=== PATIENT | male | born 1970 | race African-American/Black ===

== ENCOUNTER 2024-03-10 10:51 | Emergency (ER) | payer BC, OTHER ==
[~2024-03-10] VITALS: Ht 167.6 cm; Wt 63.5 kg
[2024-03-10 11:38] LABS: Urine Bacteria None Seen /hpf (None Seen)
[2024-03-10 11:48] LABS: Urine Blood Negative /uL (Negative); Urine Clarity Clear (Clear); Urine Color Light-Yellow (Yellow); Urine Protein, UAD 1+ (Negative); Urine Specific Gravity 1.025 (1.001-1.035); Urine Urobilinogen Normal (Negative); Urine WBC <1 /hpf (0 - 3); Urine pH 5.5 (5.0-9.0)
[2024-03-10 13:37] LABS: Basophils # (auto) 0 10 ^3/uL (0-0.2); Basophils % (auto) 1.2 % (0.0-2.0); Eosinophils # (auto) 0 10 ^3/uL (0-0.8); Eosinophils % (auto) 1.2 % (0.0-7.0); Hematocrit 41.9 % (41.0-53.0); Hemoglobin 14.3 g/dL (13.5-17.5); Lymphocytes # (auto) 1.4 10 ^3/uL (0.4-5.4); Lymphocytes % (auto) 50.7 % (10.0-50.0); Mean Corpuscular Hemoglobin 33.5 pg (28.0-32.0); Mean Corpuscular Hgb Conc. 34.2 g/dL (32.0-36.0); Mean Corpuscular Volume 98.2 fL (80.0-100.0); Monocytes # (auto) 0.4 10 ^3/uL (0-1.3); Monocytes % (auto) 14.5 % (0.0-12.0); Neutrophils # (auto) 0.9 10 ^3/uL (1.6-8.6); Neutrophils % (auto) 32.4 % (37.0-80.0); Red Blood Cells 4.27 10^6/uL (4.5-5.90); Red Cell Distribution Width 14.2 % (11.8-14.3); White Blood Cell 2.7 10^3/uL (4.4-10.8)
[2024-03-10 13:52] LABS: Alanine Aminotransferase 134 U/L (7-40); Albumin 4.2 g/dL (3.2-4.8); Alkaline Phosphatase 145 U/L (46-116); Anion Gap 6 (5-15); Aspartate Aminotransferase 69 U/L (13-40); BUN/Creatinine Ratio 21.8 (10.0-20.0); Blood Urea Nitrogen 17 mg/dL (9-23); Calcium 9.2 mg/dL (8.5-10.1); Carbon Dioxide 23 mmol/L (20-30); Chloride 110 mmol/L (98-107); Glucose 67 mg/dL (74-106); Potassium 4.1 mmol/L (3.5-5.1); Sodium 139 mmol/L (136-145)
[2024-03-10 13:53] LABS: Bilirubin, Total 0.4 mg/dL (0.2-1.0); Total Protein 6.6 g/dL (5.7-8.2)
[2024-03-10 13:55] LABS: INR 0.89 (0.9-1.15); Partial Thromboplastin Time 30.8 SEC (24.5-34.5); Prothrombin Time 9.5 sec (9.3-11.8)
[2024-03-10] MEDS ORDERED: LACT10SO3 PO (14:30)
[2024-03-10] MEDS ORDERED: DOCU-94 PO (14:30)
[2024-03-10] MEDS ORDERED: HYD25TP PR (14:30)
[2024-03-10 15:06] VITALS: BP 147/72; PULSE 71; RESP 17; TEMP 97.9; O2SAT 97
== END 2024-03-10 17:00 | disposition home or self-care (01) ==
LOC: ER 10:51
DX: K64.9 Unspecified hemorrhoids (principal); K59.00 Constipation, unspecified; I10 Essential (primary) hypertension
CPT/HCPCS: 36415; 71045; 74176; 80053; 81001; 83880; 84484; 85025; 85610; 85730